=== PATIENT | female | born 1960 | race Two or more races ===

== ENCOUNTER 2020-05-26 17:08 | Outpatient (CLI) | payer OTHER | END 2020-05-26 17:40 | disposition home or self-care (01) | LOC: OFIC 805 17:08 | PROVIDERS: ATTEND Otolaryngology | DX: H60.8X1 Other otitis externa, right ear (principal); H93.8X1 Other specified disorders of right ear; H61.21 Impacted cerumen, right ear ==

== ENCOUNTER 2020-06-23 14:37 | Outpatient (CLI) | payer OTHER | END 2020-06-23 15:20 | disposition home or self-care (01) | LOC: OFIC 805 14:37 | PROVIDERS: ATTEND Otolaryngology | DX: H60.8X1 Other otitis externa, right ear (principal) ==